=== PATIENT | female | born 1960 | race Hispanic/Latino ===

== ENCOUNTER 2016-11-01 12:27 | Outpatient (CLI) | payer BC ==
--- NOTE | 2016-11-01 15:39 | Magnetic Resonance Report ---
MRI OF THE ABDOMEN WITH AND WITHOUT CONTRAST: HISTORY: Abdominal pain/hepatomegaly. PROCEDURE: A multiplanar, multisequence study was performed with and without contrast. FINDINGS: The liver is moderately enlarged measuring 21 cm in cephalocaudad dimension. There are no focal hepatic abnormalities. There is no evidence of biliary dilatation. After contrast administration, there are no abnormal areas of enhancement within the liver parenchyma. The spleen, pancreas, and adrenal glands are normal. The kidneys are normal in size and configuration. There is a tiny subcentimeter cyst in the lower pole of the left kidney. There is no hydronephrosis. No evidence of retroperitoneal adenopathy is seen. IMPRESSION: Nonspecific hepatomegaly. No focal masses or abnormal enhancement is seen. A tiny left renal cyst is incidentally noted.
== END 2016-11-01 12:28 | disposition home or self-care (01) ==
LOC: MRI 12:27
PROVIDERS: ATTEND Internal Medicine Gastroenterology
DX: N28.1 Cyst of kidney, acquired (principal); R16.0 Hepatomegaly, not elsewhere classified; M25.519 Pain in unspecified shoulder; Z90.49 Acquired absence of other specified parts of digestive tract
CPT/HCPCS: 74183; A9577

== ENCOUNTER 2017-01-08 15:05 | Outpatient (CLI) | payer BC | END 2017-01-08 15:06 | disposition home or self-care (01) | LOC: LAB 15:05 | DX: E03.9 Hypothyroidism, unspecified (principal) | CPT/HCPCS: 36415; 84439; 84443 ==

== ENCOUNTER 2017-05-23 16:27 | Outpatient (CLI) | payer BC | END 2017-05-23 16:28 | disposition home or self-care (01) | LOC: LAB 16:27 | DX: R63.4 Abnormal weight loss (principal) | CPT/HCPCS: 36415 ==

== ENCOUNTER 2017-06-20 07:52 | Outpatient (CLI) | payer BC, OTHER | END 2017-06-20 07:53 | disposition home or self-care (01) | LOC: LABHHL 07:52 | PROVIDERS: ATTEND Specialist | DX: N63 Unspecified lump in breast (principal) | CPT/HCPCS: 88112 ==

== ENCOUNTER 2017-09-26 07:13 | Outpatient (CLI) | payer BC ==
--- NOTE | 2017-09-30 08:21 | PET Report ---
PET SB TO MT INITIAL: HISTORY: Left lung pulmonary nodule. TECHNIQUE: 13.8 millicuries F-18 FDG was administered intravenously. Noncontrast CT images and PET images were obtained from the skull base to the proximal thighs. Fused images were reviewed on a workstation. The patient's blood glucose level measured 113. COMPARISON: No previous PET/CT. Correlation is made with a CT abdomen pelvis with contrast dated 08/06/16. FINDINGS: BRAIN: physiologic FDG uptake in the imaged brain. NECK: physiologic FDG uptake. MEDIASTINUM: physiologic FDG uptake. LUNGS: physiologic FDG uptake. There is a 1 cm calcified granuloma in the subpleural region of the medial left lower lobe with max SUV measuring 1.3. No suspicious pulmonary nodule or mass. No underlying lung disease detected. PLEURA/PERICARDIUM: physiologic FDG uptake. THORACIC LYMPH NODES: physiologic FDG uptake. HEPATOBILIARY: physiologic FDG uptake. Cholecystectomy changes are noted. Mean liver SUV measures 2.6. PANCREAS: physiologic FDG uptake. SPLEEN: physiologic FDG uptake. ADRENAL GLANDS: physiologic FDG uptake. KIDNEYS/RENAL COLLECTING SYSTEMS: physiologic FDG uptake. BOWEL/MESENTERY: physiologic FDG uptake. PELVIC VISCERA: physiologic FDG uptake. ABDOMINAL/PELVIC LYMPH NODES: physiologic FDG uptake. MUSCULOSKELETAL: There is a solitary focus of increased radiotracer uptake with max SUV measuring 5.2 in the left lower quadrant abdominal wall. This appears to involve the abdominal wall muscles near the anterior, inferior iliac spine. There is no focal mass in this area. This presumably represents muscular uptake. Please correlate with the patient. IMPRESSION: Negative PET/CT. 1 cm calcified granuloma in the left lower lobe as described. No suspicious pulmonary nodule. There is a solitary focus of increased radiotracer uptake in the left lower quadrant anterior abdominal wall which appears to be muscular in origin. See above. No suspicious mass in this area on the CT images.
== END 2017-09-26 07:14 | disposition home or self-care (01) ==
LOC: PET 07:13
PROVIDERS: ATTEND Internal Medicine Critical Care Medicine
DX: J84.10 Pulmonary fibrosis, unspecified (principal); R91.1 Solitary pulmonary nodule; Z90.49 Acquired absence of other specified parts of digestive tract; Z79.899 Other long term (current) drug therapy
CPT/HCPCS: 78816; 82962; A9552

== ENCOUNTER 2018-01-15 07:48 | Day surgery (SDC) | payer BC ==
[2018-01-15] MEDS ORDERED: NACL 0.9% 1000 ML 1,000 ML IV SCH ×2 (08:00→09:00)
[2018-01-15] MEDS ORDERED: WATER FOR IRRIG STERILE IR ONE (08:34)
[2018-01-15] MEDS ORDERED: WATER FOR IRRIG STERILE ONE (08:34)
[2018-01-15] MEDS ORDERED: XYLOCAINE 1% 20 mL ONE (09:00)
[2018-01-15] MEDS ORDERED: DIPRIVAN 10 MG/ML IV ONE ×3 (09:01→09:22)
--- NOTE | 2018-01-15 09:40 | Short Stay Summary ---
Short Stay Documentation Date of service: 01/15/18 Narrative H&P: see office H&H dated 12/25/17 - History H&P: obtained from office - Allergies and Medications Current Medications: Allergies Sulfa (Sulfonamide Antibiotics) Allergy (Verified 08/10/16 11:13) Rash ciprofloxacin [From Cipro] Adverse Reaction (Verified 08/10/16 11:13) lips bleed ciprofloxacin HCl [From Cipro] Adverse Reaction (Verified 08/10/16 11:13) lips bleed clindamycin Adverse Reaction (Verified 08/10/16 11:13) makes skin crawl fluconazole [From Diflucan] Adverse Reaction (Verified 08/10/16 11:13) lips bleed Home Medications Medication Instructions Recorded Confirmed Last Taken Type Levothyroxine [Synthroid] 75 mcg PO QAM 10/18/16 01/15/18 01/13/18 History Active Medications Sodium Chloride (Nacl 0.9% 1000 Ml) 1,000 mls @ 50 mls/hr IV DIRECT MARTHA Last Admin: 01/15/18 08:32 Dose: 50 mls/hr - Brief post op/procedure progress note Date of procedure: 01/15/18 Findings: see dictated reports. Estimated blood loss: none Pathology: list (1. biopsies of duodenum to r/o celiac disease 2. Antral biopsies for h.pylori and metaplasia) Specimen disposition: to lab Condition: stable - Disposition Condition at discharge: Good Disposition: DC-01 TO HOME OR SELFCARE - Discharge Diagnoses (1) Epigastric abdominal pain Status: Acute (2) History of colon polyps Status: Acute Short Stay Discharge Plan Activity: other (no driving for 24 hours) Weight Bearing Status: Full Weight Bearing Diet: regular Follow up with: LAURI MACHADO JR., MD [Primary Care Provider] - 7 Days
--- NOTE | 2018-01-15 09:43 | Operative Report ---
Operative Report Operative Report: Date of procedure: 01/15/2018 Procedure: Esophagogastroduodenoscopy with biopsies of the duodenum to assess for possible celiac disease and biopsy of the antrum to assess for possible H. pylori and metaplasia. Preprocedure diagnosis: Chronic epigastric pain. History of H. pylori infection. Post procedure diagnosis: Minimal prepyloric antral gastritis. Endoscopist: Dr. Goodrich Anesthesia: Monitored anesthesia care per anesthesia department Medications: Propofol per anesthesia Estimated blood loss: 0 After careful discussion of the nature and purpose of the procedure as well as details the technique risks benefits and alternatives consent was obtained. The patient was placed in the left lateral decubitus position and medicated per anesthesia. The tip of the Scan EQ 570 video scope was passed per orum under direct vision into the esophagus and advanced into the stomach and descending duodenum. The descending duodenum the duodenal bulb and pylorus were symmetrical and normal. 5 biopsies were taken from the descending duodenum to assess for possible celiac disease. The scope was withdrawn into the stomach and the stomach then gently insufflated with air. The antrum revealed patchy erythema without ulcers or erosions. 3 biopsies were taken to assess for possible H. pylori and metaplasia.. The stomach was further insufflated and the scope was then retroflexed and partially withdrawn. The cardia, fundus, and body of the stomach were within normal limits and easily distensible.The scope was then withdrawn in the forward position. The esophagogastric junction was at 36 cm. The esophageal body was normal throughout. The procedure was was well tolerated and the patient was observed in recovery. Impressions: Minimal prepyloric gastritis otherwise normal upper digestive tract. Plan: Await results of pathology. The patient called the office in 2 weeks for discussion and management. Electronically signed: Frankie Goodrich MD
--- NOTE | 2018-01-15 09:44 | Operative Report ---
Operative Report Operative Report: Date of procedure: 01/15/2018 Preprocedure diagnosis: History of colon polyps Post procedure diagnosis: Few sigmoid diverticula otherwise normal study with no recurrent polyps. Procedure: Colonoscopy to the cecum Endoscopist: Dr. Goodrich Anesthesia: Monitored anesthesia care per anesthesia department Estimated blood loss: 0 Medications: Monitored anesthesia care. See separate report by anesthesia for details. After careful discussion of the nature and purpose of the procedure as well as details of the technique risks benefits and alternatives the patient gave consent. Please see recent history and physical from the office. The patient was placed in the left lateral decubitus position and medicated per anesthesia. A rectal exam was performed sphincter tone was normal there were no masses palpable. The [employer] 570 scope was passed transanally and advanced under continuous direct vision without difficulty to the cecum. The colon was well prepared. The cecum was normal. The ascending colon was normal and on forward and retroflexed views. The transverse colon, descending colon, and sigmoid colon were normal except for a few scattered sigmoid diverticula. The rectum was normal on forward and retroflexed views. The procedure was well-tolerated overall and the patient was observed in recovery. Conclusions: Mild sigmoid diverticulosis. No recurrent polyps. Plan: Repeat colonoscopy in 5 years. Signed electronically: Frankie Goodrich M.D.
--- NOTE | 2018-01-15 09:54 | Anesthesia Consultation ---
Anesthesia Consult and Med Hx Date of service: 01/15/18 - Airway Anesthetic Teeth Evaluation: Good, Caps ROM Head & Neck: Inadequate (stiff, pain in neck) Mental/Hyoid Distance: Inadequate Mallampati Class: Class I Intubation Access Assessment: Probably Good - Pulmonary Exam CTA: Yes - Cardiac Exam Cardiac Exam: RRR - Pre-Operative Health Status ASA Pre-Surgery Classification: ASA2 Proposed Anesthetic Plan: MAC - Pulmonary Hx Smoking: Yes (Quit 3 years ago ) - Endocrine Hx Hypothyroidism: Yes
--- NOTE | 2018-01-15 09:54 | Anesthesia Day of Surgery ---
Anesthesia Day of Surgery - Day of Surgery Patient Examined: Yes Patient H&P Reviewed: Yes Patient is NPO: Yes
[2018-01-15 10:41] VITALS: BP 110/67
== END 2018-01-15 07:49 | disposition home or self-care (01) ==
LOC: GIO 07:48
PROVIDERS: ATTEND Internal Medicine Gastroenterology
DX: K57.30 Diverticulosis of large intestine without perforation or abscess without bleeding (principal); K29.70 Gastritis, unspecified, without bleeding; K31.89 Other diseases of stomach and duodenum; E03.9 Hypothyroidism, unspecified; Z98.890 Other specified postprocedural states; Z88.2 Allergy status to sulfonamides; Z88.1 Allergy status to other antibiotic agents; Z87.891 Personal history of nicotine dependence; Z86.010 Personal history of colon polyps
CPT/HCPCS: 43239; 45378; 88305; 88342; J2704; J7030

== ENCOUNTER 2018-04-29 14:59 | Emergency (ER) | payer BC ==
[2018-04-29] MEDS ORDERED: BOOSTRIX IM ONE (15:38)
--- NOTE | 2018-04-29 15:41 | Emergency Department Report ---
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 Patient states she was pulling trash and a metal trash can fell on right leg cutting mabry. She cleaned wound with alcohol wipes and applied a Tegaderm. She went home and started taking an old prescription of amoxicillin for 3 days prior to me in for evaluation. Patient reports bleeding stopped Saturday when she got home. She is unsure of the last tetanus vaccine. Her primary care provider is in the family practice. Denies swelling, fever, numbness or tingling, chest pain, and deformity ED Review of Systems ROS: Stated complaint: CUT LEG ON TRASH CAN Other details as noted in HPI Constitutional: denies: chills, fever Respiratory: denies: cough, shortness of breath, wheezing Cardiovascular: denies: chest pain, palpitations Gastrointestinal: denies: abdominal pain, nausea, diarrhea Skin: lesions (1 cm abrasion to right mabry). denies: rash Neurological: denies: headache, weakness, numbness, paresthesias Psychiatric: denies: anxiety, depression ED Past Medical Hx - Past Medical History Previous Medical History?: Yes Hx GERD: Yes Hx HIV: No - Surgical History Past Surgical History?: Yes Hx Cholecystectomy: Yes - Social History Smoking Status: Never Smoker Substance Use Type: None - Medications Home Medications: Home Medications Medication Instructions Recorded Confirmed Last Taken Type Levothyroxine [Synthroid] 75 mcg PO QAM 10/18/16 01/15/18 01/13/18 History Doxycycline Hyclate [Doxycycline 100 mg PO Q12HR #14 tab 04/29/18 Unknown Rx Hyclate TAB] Laceration Physical Exam - Exam General: Vital signs noted. No distress. Alert and acting appropriately. Wound Length (cm): 1 Laceration Location: Lower Extremity (right lower extremity) Full Body Front + Back: 1 - 1 cm abrasion, surrounding cellulitis, warm and tender, no active drainage Laceration Exam: Yes Normal Distal CMS, No Foreign Body, No Exposed Tendon, Vessel, or Nerve, No Tendon Injury ED Course Vital Signs 04/29/18 15:06 Temperature 98.3 F Pulse Rate 72 Respiratory 16 Rate Blood Pressure 115/74 O2 Sat by Pulse 100 Oximetry ED Medical Decision Making - Medical Decision Making This is a 57 y.o. female presents with abrasion to right lower extremity with surrounding cellulitis. Patient examined by me. Patient is non-toxic appearing and stable. Vitals are normal. Physical examination is susceptible of cellulites. Start doxycycline 100 mg by mouth twice a day 7 days. Given tetanus vaccination while in the ER. Discharged home stable. Discussed ER care plan with patient. Patient agreed with plan. F/U with PCP. Critical care attestation.: If time is entered above; I have spent that time in minutes in the direct care of this critically ill patient, excluding procedure time. ED Disposition Clinical Impression: Cellulitis of leg without foot Abrasion of leg with infection Qualifiers: Encounter type: initial encounter Laterality: right Qualified Code(s): S80.811A - Abrasion, right lower leg, initial encounter; L08.9 - Local infection of the skin and subcutaneous tissue, unspecified Disposition: - TO HOME OR SELFCARE Is pt being admited?: No Does the pt Need Aspirin: No Condition: Stable Instructions: Cellulitis (ED) Additional Instructions: Take antibiotics as prescribed for the full course. Apply triple antibiotic ointment to wound twice daily. Keep wound dry and clean. Avoid putting to much tension on wound site. Follow up with Primary Care Provider in 2-3 days. Return to ER if red, swollen, foul discharge, or fever. Prescriptions: Doxycycline Hyclate [Doxycycline Hyclate TAB] 100 mg PO Q12HR #14 tab Referrals: [facility] [Provider Group] - 3-5 Days Time of Disposition: 15:46 Print Language: TONGAN
[2018-04-29 15:54] VITALS: BP 115/70
== END 2018-04-29 15:52 | disposition home or self-care (01) ==
LOC: ED 14:59
DX: S80.811A Abrasion, right lower leg, initial encounter (principal); L08.9 Local infection of the skin and subcutaneous tissue, unspecified; L03.115 Cellulitis of right lower limb; K52.9 Noninfective gastroenteritis and colitis, unspecified; Z90.49 Acquired absence of other specified parts of digestive tract; X58.XXXA Exposure to other specified factors, initial encounter; Y93.89 Activity, other specified; Y99.8 Other external cause status; Y92.89 Other specified places as the place of occurrence of the external cause
CPT/HCPCS: 90471; 90715

== ENCOUNTER 2018-08-12 14:05 | Outpatient (CLI) | payer BC ==
[2018-08-12 15:14] LABS: Free T4 (Free Thyroxine) 1.44 ng/dL (0.76-1.46)
== END 2018-08-12 14:06 | disposition home or self-care (01) ==
LOC: LAB 14:05
PROVIDERS: ATTEND Physician Assistant Medical
DX: E03.9 Hypothyroidism, unspecified (principal); K21.9 Gastro-esophageal reflux disease without esophagitis; Z90.89 Acquired absence of other organs; Z90.49 Acquired absence of other specified parts of digestive tract; Z87.891 Personal history of nicotine dependence
CPT/HCPCS: 36415; 84436; 84439; 84443; 84479

== ENCOUNTER 2019-05-28 14:13 | Outpatient (CLI) | payer BC ==
--- NOTE | 2019-05-28 14:52 | XRay Report ---
CHEST 2 VIEWS INDICATION / CLINICAL INFORMATION: (R04.2)HEMOPTYSIS. COMPARISON: None available. FINDINGS: SUPPORT DEVICES: None. Foreign body projecting at the level of the neck over midline on the frontal i mages presumed to be outside the patient, likely a hair tie. HEART / MEDIASTINUM: No significant abnormality. LUNGS / PLEURA: No significant pulmonary or pleural abnormality. No pneumothorax. ADDITIONAL FINDINGS: No significant additional findings. IMPRESSION: 1. No acute findings. Signer Name: Shahid Devi MD Signed: 05/28/2019 2:48 PM Workstation Name: [id number]
== END 2019-05-28 14:14 | disposition home or self-care (01) ==
LOC: XRAY 14:13
PROVIDERS: ATTEND Family Medicine
DX: R04.2 Hemoptysis (principal); K21.9 Gastro-esophageal reflux disease without esophagitis; E03.9 Hypothyroidism, unspecified; Z90.89 Acquired absence of other organs
CPT/HCPCS: 71046

== ENCOUNTER 2019-06-01 18:39 | Emergency (ER) | payer BC ==
--- NOTE | 2019-06-01 19:27 | Emergency Department Report ---
Blank Doc - Documentation Documentation: This is a 58-year-old female that presents with vaginal discharge and nasal di scharge. Was sent by PCP for positive cultures. This initial assessment/diagnostic orders/clinical plan/treatment(s) is/are subject to change based on patient's health status, clinical progression and re- assessment by fellow clinical providers in the ED. Further treatment and workup at subsequent clinical providers discretion. Patient/guardians urged not to elope from the ED as their condition may be serious if not clinically assessed and managed. Initial orders include: 1- Patient sent to MAIN ED for further evaluation and treatment
[2019-06-01 19:35] VITALS: BP 114/73
[2019-06-01] MEDS ORDERED: ROCEPHIN/NS 1 GM/50 ML 1 GM/50 ML BAG IV ONE (20:50)
[2019-06-01 21:12] LABS: Basophils % (Auto) 0.4 % (0.0-1.8); Eosinophils # (Auto) 0.1 K/mm3 (0.0-0.4); Eosinophils % (Auto) 1.4 % (0.0-4.3); Hematocrit 39.6 % (30.3-42.9); Hemoglobin 13.6 gm/dl (10.1-14.3); Lymphocytes # (Auto) 1.4 K/mm3 (1.2-5.4); Lymphocytes % (Auto) 23.7 % (13.4-35.0); Mean Corpuscular HGB Conc 34 % (30-34); Mean Corpuscular Volume 95 fl (79-97); Monocytes # (Auto) 0.6 K/mm3 (0.0-0.8); Monocytes % (Auto) 10.3 % (0.0-7.3); Platelet Count 214 K/mm3 (140-440); Red Blood Count 4.19 M/mm3 (3.65-5.03); Red Cell Distribution Width 12.9 % (13.2-15.2)
[2019-06-01 21:33] LABS: Alanine Aminotransferase 19 units/L (7-56); Albumin 4.6 g/dL (3.9-5); BUN/Creatinine Ratio 32; Blood Urea Nitrogen 16 mg/dL (7-17); Calcium 9.1 mg/dL (8.4-10.2); Hemolysis Index 8
[2019-06-01 21:37] LABS: Bilirubin,Direct < 0.2 mg/dL (0-0.2)
--- NOTE | 2019-06-01 23:56 | Emergency Department Report ---
ED Female HPI - General Chief complaint: Abdominal Pain Stated complaint: INFECTION/PAIN Time Seen by Provider: 06/01/19 19:25 Source: patient Mode of arrival: Ambulatory Limitations: No Limitations - History of Present Illness Initial comments: Patient is a 58-year-old white female presents to the ED for evaluation after being referred to the ED by her primary care physician for IV antibiotics given the fact that the patient has had chronic urinary tract infection which has not been adequately treated outpatient. Patient currently complains of suprapubic pressure, dysuria, urinary frequency and urgency. Patient denies fever, chills, nausea, vomiting, abdominal pain, cough, chest pain, shortness of breath or vaginal discharge and vaginal bleeding. MD Complaint: dysuria, pelvic pain -: Gradual, month(s) (6) Location: suprapubic Radiation: non-radiating Severity: mild Severity scale (0 -10): 0 Quality: dull Consistency: intermittent Improves with: none Worsens with: urination Are you Now?: No Associated Symptoms: denies other symptoms, dysuria. denies: vaginal discharge, vaginal bleeding, abdominal pain, nausea/vomiting, fever/chills, headaches, loss of appetite, rash, seizure, shortness of breath, weakness - Related Data Sexually active: Yes Home Medications Medication Instructions Recorded Confirmed Last Taken Levothyroxine [Synthroid] 75 mcg PO QAM 10/18/16 01/15/18 01/13/18 Previous Rx's Medication Instructions Recorded Last Taken Type Doxycycline Hyclate [Doxycycline 100 mg PO Q12HR #14 tab 04/29/18 Unknown Rx Hyclate TAB] Omeprazole 40 mg PO DAILY #30 capsule. 02/06/19 Unknown Rx levoFLOXacin [Levaquin TAB] 500 mg PO QDAY #10 tablet 06/02/19 Unknown Rx Allergies Allergy/AdvReac Type Severity Reaction Status Date / Time Sulfa (Sulfonamide Allergy Rash Verified 08/10/16 11:13 Antibiotics) ciprofloxacin [From Cipro] AdvReac lips bleed Verified 08/10/16 11:13 ciprofloxacin HCl AdvReac lips bleed Verified 08/10/16 11:13 [From Cipro] clindamycin AdvReac makes skin Verified 08/10/16 11:13 crawl fluconazole [From Diflucan] AdvReac lips bleed Verified 08/10/16 11:13 ED Review of Systems ROS: Stated complaint: INFECTION/PAIN Other details as noted in HPI Constitutional: denies: chills, fever Eyes: denies: eye pain, eye discharge, vision change ENT: denies: ear pain, throat pain Respiratory: denies: cough, shortness of breath, wheezing Cardiovascular: denies: chest pain, palpitations Endocrine: no symptoms reported Gastrointestinal: denies: abdominal pain, nausea, diarrhea Genitourinary: dysuria, frequency, other (pelvic pressure). denies: urgency, discharge, dyspareunia Musculoskeletal: denies: back pain, joint swelling, arthralgia Skin: denies: rash, lesions Neurological: denies: headache, weakness, paresthesias Psychiatric: denies: anxiety, depression Hematological/Lymphatic: denies: easy bleeding, easy bruising ED Past Medical Hx - Past Medical History Previous Medical History?: Yes Hx GERD: Yes Hx HIV: No Additional medical history: hypothyroidism - Surgical History Past Surgical History?: Yes Hx Cholecystectomy: Yes Additional Surgical History: nose surgery,infertility surgery - Social History Smoking Status: Current Every Day Smoker - Medications Home Medications: Home Medications Medication Instructions Recorded Confirmed Last Taken Type Levothyroxine [Synthroid] 75 mcg PO QAM 10/18/16 01/15/18 01/13/18 History Doxycycline Hyclate [Doxycycline 100 mg PO Q12HR #14 tab 04/29/18 Unknown Rx Hyclate TAB] Omeprazole 40 mg PO DAILY #30 capsule. 02/06/19 Unknown Rx levoFLOXacin [Levaquin TAB] 500 mg PO QDAY #10 tablet 06/02/19 Unknown Rx ED Physical Exam - General Limitations: No Limitations General appearance: alert, in no apparent distress - Head Head exam: Present: atraumatic, normocephalic, normal inspection - Eye Eye exam: Present: normal appearance, PERRL, EOMI - ENT ENT exam: Present: normal exam, normal orophraynx, mucous membranes moist, TM's normal bilaterally, normal external ear exam - Neck Neck exam: Present: normal inspection, full ROM. Absent: tenderness, meningismus, lymphadenopathy, thyromegaly - Respiratory Respiratory exam: Present: normal lung sounds bilaterally. Absent: respiratory distress, wheezes, rales, rhonchi, chest wall tenderness, accessory muscle use, prolonged expiratory - Cardiovascular Cardiovascular Exam: Present: regular rate, normal rhythm, normal heart sounds. Absent: systolic murmur, diastolic murmur, rubs, gallop - GI/Abdominal GI/Abdominal exam: Present: soft, normal bowel sounds. Absent: tenderness, guarding, rebound, hyperactive bowel sounds, hypoactive bowel sounds, organomegaly, mass - Rectal Rectal exam: Present: deferred - Extremities Exam Extremities exam: Present: normal inspection, full ROM, normal capillary refill - Back Exam Back exam: Present: normal inspection, full ROM. Absent: tenderness, CVA tenderness (R), CVA tenderness (L), muscle spasm, paraspinal tenderness, vertebral tenderness - Neurological Exam Neurological exam: Present: alert, oriented X3, CN II-XII intact, normal gait, reflexes normal - Psychiatric Psychiatric exam: Present: normal affect, normal mood, anxious - Skin Skin exam: Present: warm, dry, intact, normal color. Absent: rash ED Course Vital Signs 06/01/19 19:34 Temperature 98.0 F Pulse Rate 76 Respiratory 18 Rate Blood Pressure 114/73 O2 Sat by Pulse 99 Oximetry - Reevaluation(s) Reevaluation #1: 06/02/19 01:49 This is a 58-year-old female who presented to the ED with suprapubic pressure, dysuria, urinary frequency and urgency, and was referred to the ED by her PCP for possible IV antibiotics treatment given that unit tract infection is chronic. Patient is alert and oriented 3 and is not in distress with normal vital signs in the ED. Lab test results were reviewed and are all unremarkable. Patient was treated initially with Rocephin 1 g IV 1, and normal saline 1 L IV bolus. Patient was discharged home on Levaquin by mouth tablet daily for 10 days and advised to follow-up with primary care physician in 7-10 days for reevaluation or return to the ED immediately if symptoms get worse. Patient had previously stated that she had previously taken Levaquin before without any allergic reaction but there is allergies include ciprofloxacin. 06/02/19 01:51 ED Medical Decision Making - Lab Data Result diagrams: 06/01/19 20:59 06/01/19 20:59 - Medical Decision Making This is a 58-year-old female who presented to the ED with suprapubic pressure, dysuria, urinary frequency and urgency, and was referred to the ED by her PCP for possible IV antibiotics treatment given that unit tract infection is chronic. Patient is alert and oriented 3 and is not in distress with normal v ital signs in the ED. Lab test results were reviewed and are all unremarkable. Patient was treated initially with Rocephin 1 g IV 1, and normal saline 1 L IV bolus. Patient was discharged home on Levaquin by mouth tablet daily for 10 days and advised to follow-up with primary care physician in 7-10 days for reevaluation or return to the ED immediately if symptoms get worse. Although the patient is allergic to ciprofloxacin, patient stated that she had taken Levaquin previously with no reaction. Patient was therefore given a prescription for Levaquin to take at home. - Differential Diagnosis Chronic UTI; Pelvic pain; dysuria Critical care attestation.: If time is entered above; I have spent that time in minutes in the direct care o f this critically ill patient, excluding procedure time. ED Disposition Clinical Impression: Chronic UTI (urinary tract infection) Disposition: DC-01 TO HOME OR SELFCARE Is pt being admited?: No Does the pt Need Aspirin: No Condition: Stable Instructions: Urinary Tract Infection in Women (ED), Abdominal Pain (ED) Additional Instructions: Take medication with food, drink plenty of fluids and follow up with your primary care physician in 7-10 days for reevaluation. Return to the ED immediately if symptoms get worse. Prescriptions: levoFLOXacin [Levaquin TAB] 500 mg PO QDAY #10 tablet Referrals: ANGELA SERRANO MD [Primary Care Provider] - 3-5 Days Time of Disposition: 23:55 Print Language: CITIZEN OF [place]
[2019-06-02 01:26] LABS: Bacteria,Urine 1+ /HPF (Negative); Bilirubin,Urine NEG (Negative); Blood,Urine NEG (Negative); Color,Urine Yellow (Yellow); Mucus,Urine FEW /HPF; Protein,Urine <15 mg/dL mg/dL (Negative); Urobilinogen,Urine < 2.0 mg/dL (<2.0)
== END 2019-06-02 01:48 | disposition home or self-care (01) ==
LOC: ED 18:39
DX: N39.0 Urinary tract infection, site not specified (principal); K21.9 Gastro-esophageal reflux disease without esophagitis; E03.9 Hypothyroidism, unspecified; F17.200 Nicotine dependence, unspecified, uncomplicated; Z90.49 Acquired absence of other specified parts of digestive tract; Z79.899 Other long term (current) drug therapy; Z88.1 Allergy status to other antibiotic agents; Z88.2 Allergy status to sulfonamides; Z88.8 Allergy status to other drugs, medicaments and biological substances
CPT/HCPCS: 36415; 80048; 80076; 81001; 85025; 87040; 87076; 87086; 87186; 96365; 99283; J0696

== ENCOUNTER 2019-07-31 15:20 | Outpatient (CLI) | payer BC ==
[2019-07-31 15:42] LABS: Basophils % (Auto) 0.7 % (0.0-1.8); Eosinophils # (Auto) 0.1 K/mm3 (0.0-0.4); Eosinophils % (Auto) 2.1 % (0.0-4.3); Hemoglobin 13.7 gm/dl (10.1-14.3); Lymphocytes # (Auto) 1.2 K/mm3 (1.2-5.4); Lymphocytes % (Auto) 27.8 % (13.4-35.0); Mean Corpuscular HGB Conc 34 % (30-34); Mean Corpuscular Volume 94 fl (79-97); Monocytes # (Auto) 0.4 K/mm3 (0.0-0.8); Monocytes % (Auto) 9.9 % (0.0-7.3); Platelet Count 235 K/mm3 (140-440); Red Blood Count 4.25 M/mm3 (3.65-5.03); Red Cell Distribution Width 12.8 % (13.2-15.2)
[2019-07-31 17:28] LABS: Alanine Aminotransferase 18 units/L (7-56); Albumin 4.7 g/dL (3.9-5); BUN/Creatinine Ratio 25; Blood Urea Nitrogen 15 mg/dL (7-17); Hemolysis Index 3
== END 2019-07-31 15:21 | disposition home or self-care (01) ==
LOC: LAB 15:20
PROVIDERS: ATTEND Internal Medicine Gastroenterology
DX: R63.4 Abnormal weight loss (principal); R10.13 Epigastric pain
CPT/HCPCS: 36415; 80053; 85025; 86705; 86706; 86803

== ENCOUNTER 2019-08-05 11:35 | Outpatient (CLI) | payer BC ==
--- NOTE | 2019-08-06 00:22 | Ultrasound Report ---
LIMITED RUQ ABDOMINAL ULTRASOUND INDICATION: R63.4 ABNORMAL WEIGHT LOSS/R10.13EPIGASTRIC PAIN. COMPARISON: CT scan abdomen/pelvis 02/06/2019. FINDINGS: Pancreas: Visualized portions show no significant abnormality. Abdominal Aorta: No significant abnormality. IVC: No significant abnormality. Liver: The liver does not appear grossly enlarged. Echogenicity is normal and there are no focal mass es.. Gallbladder: Surgically absent. Sonographic Orlando's sign: Not performed. Bile ducts: Normal. Common bile duct measures 7 mm. Free fluid: None. Additional Findings: Prominence of the hepatic veins may be related to hydration status.. IMPRESSION: 1. Normal exam. Signer Name: Al Boucher MD Signed: 08/06/2019 12:18 AM Workstation Name: [id number]
== END 2019-08-05 11:36 | disposition home or self-care (01) ==
LOC: US 11:35
PROVIDERS: ATTEND Internal Medicine Gastroenterology
DX: R63.4 Abnormal weight loss (principal); R10.13 Epigastric pain; Z90.49 Acquired absence of other specified parts of digestive tract
CPT/HCPCS: 76705

== ENCOUNTER 2019-08-14 15:35 | Outpatient (CLI) | payer BC | END 2019-08-14 15:36 | disposition home or self-care (01) | LOC: LAB 15:35 | PROVIDERS: ATTEND Internal Medicine Gastroenterology | DX: R76.8 Other specified abnormal immunological findings in serum (principal); F17.200 Nicotine dependence, unspecified, uncomplicated; K21.9 Gastro-esophageal reflux disease without esophagitis; E03.9 Hypothyroidism, unspecified; Z90.49 Acquired absence of other specified parts of digestive tract | CPT/HCPCS: 36415; 86803 ==

== ENCOUNTER 2019-08-18 09:50 | Day surgery (SDC) | payer BC ==
[~2019-08-18 09:50] MED LIST: SODIUM CHLORIDE 0.9% 1000 ML 1,000 ML IV SCH
[2019-08-18] MEDS ORDERED: LIDOCAINE (2%) 20 MG/1 ML VIAL 20 ML MDV INFILTRATI ONE (11:28)
[2019-08-18] MEDS ORDERED: PROPOFOL 200 MG/20 ML VIAL IV ONE (11:28)
[2019-08-18] MEDS ORDERED: fentaNYL 100 MCG/2 ML INJ ONE (11:28)
--- NOTE | 2019-08-18 12:02 | Short Stay Summary ---
Short Stay Documentation Date of service: 08/18/19 - History H&P: obtained from office - Allergies and Medications Current Medications: Allergies Sulfa (Sulfonamide Antibiotics) Allergy (Verified 08/10/16 11:13) Rash ciprofloxacin [From Cipro] Adverse Reaction (Verified 08/10/16 11:13) lips bleed ciprofloxacin HCl [From Cipro] Adverse Reaction (Verified 08/10/16 11:13) lips bleed clindamycin Adverse Reaction (Verified 08/10/16 11:13) makes skin crawl fluconazole [From Diflucan] Adverse Reaction (Verified 08/10/16 11:13) lips bleed Home Medications Medication Instructions Recorded Confirmed Last Taken Type Levothyroxine [Synthroid] 75 mcg PO QAM 10/18/16 01/15/18 08/17/19 History Doxycycline Hyclate [Doxycycline 100 mg PO Q12HR #14 tab 04/29/18 Unknown Rx Hyclate TAB] Omeprazole 40 mg PO DAILY #30 capsule. 02/06/19 Unknown Rx levoFLOXacin [Levaquin TAB] 500 mg PO QDAY #10 tablet 06/02/19 Unknown Rx Penicillin V Potassium 500 mg PO BID #14 tablet 06/12/19 Unknown Rx Active Medications Sodium Chloride (Nacl 0.9% 1000 Ml) 1,000 mls @ 50 mls/hr IV DIRECT MARTHA Last Admin: 08/18/19 11:43 Dose: 50 mls/hr Documented by: - Brief post op/procedure progress note Date of procedure: 08/18/19 Findings: see dictation Estimated blood loss: none Pathology: list (1. duodenal biopsies for celiac exclusion 2. antral biopsies for h.pylori exclusion) Specimen disposition: to lab Condition: stable - Disposition Condition at discharge: Good Disposition: DC-01 TO HOME OR SELFCARE Short Stay Discharge Plan Activity: other (no driving for 24 hours) Weight Bearing Status: Full Weight Bearing Diet: regular Follow up with: JAVIER HOOPER MD [Primary Care Provider] - 7 Days
--- NOTE | 2019-08-18 12:05 | Operative Report ---
Operative Report Operative Report: Date of procedure: 08/18/2019 Procedure: Esophagogastroduodenoscopy with biopsies of the duodenum and biopsies of the stomach Preprocedure diagnosis: Epigastric and right upper quadrant pain. Weight loss.. Post procedure diagnosis: Mild nonerosive gastritis, fixed open pylorus. Normal study otherwise. Endoscopist: Dr. Goodrich Anesthesia: Monitored anesthesia care per anesthesia department Medications: Propofol per anesthesia. Estimated blood loss: 0 After careful discussion of the nature and purpose of the procedure as well as details the technique risks benefits and alternatives consent was obtained. The patient was placed in the left lateral decubitus position and medicated per anesthesia. The tip of the Olympus video scope was passed per orum under direct vision into the esophagus and advanced into the stomach and descending duodenum. The descending duodenum the duodenal bulb and pylorus were symmetrical and normal. Biopsies of the second and third portion of the duodenum were obtained to assess for possible celiac disease. The scope was withdrawn into the stomach and the stomach then gently insufflated with air. The antrum revealed patchy erythema but no erosions or ulcers. Biopsies were taken for H. pylori testing. The stomach was further insufflated and the scope was then retroflexed and partially withdrawn. The cardia, fundus, and body of the stomach were within normal limits and easily distensible.The scope was then withdrawn in the forward position. The esophagogastric junction was at 36 cm. The esophageal body was normal throughout. The procedure was was well tolerated and the patient was observed in recovery. Impressions: Mild gastritis, nonerosive. Normal appearing upper digestive tract otherwise. Plan: Await pathology results for possible celiac disease and H. pylori infection. The patient will call the office in 1 week. Electronically signed: Frankie Goodrich MD
--- NOTE | 2019-08-18 12:16 | Anesthesia Day of Surgery ---
Anesthesia Day of Surgery - Day of Surgery Patient Examined: Yes Patient H&P Reviewed: Yes Patient is NPO: Yes
--- NOTE | 2019-08-18 12:18 | Anesthesia Consultation ---
Anesthesia Consult and Med Hx Date of service: 08/18/19 - Airway ROM Head & Neck: Adequate Mental/Hyoid Distance: Adequate Mallampati Class: Class I Intubation Access Assessment: Good - Pulmonary Exam CTA: Yes - Cardiac Exam Cardiac Exam: RRR - Pre-Operative Health Status ASA Pre-Surgery Classification: ASA3 Proposed Anesthetic Plan: General, MAC (Abd. Pain, gastritis, Wt loss. Hep C (+) antibodies) - Pulmonary Hx Smoking: Yes (Quit 3 years ago ) Hx Sleep Apnea: No - Central Nervous System Hx Psychiatric Problems: No - Gastrointestinal Hx Gastroesophageal Reflux Disease: (Tests revealed mild reflux. Pt is asymptomatic.) - Endocrine Hx Hypothyroidism: Yes - Other Systems Hx Cancer: No
--- NOTE | 2019-08-18 12:22 | Post Anesthesia Evaluation ---
- Post Anesthesia Evaluation Patient Participated: Yes Airway Patent: Yes Stable Respiratory Function: Yes Nausea/Vomiting: No Temp > 96.8F: Yes Pain Manageable: Yes Adequeate Hydration: Yes Anesthesia Complications: No Block Receding Appropriately: Not Applicable Patient on Ventilator: No
[2019-08-18 12:38] VITALS: BP 98/61
== END 2019-08-18 09:51 | disposition home or self-care (01) ==
LOC: GIO 09:50
PROVIDERS: ATTEND Internal Medicine Gastroenterology
DX: R63.4 Abnormal weight loss (principal); R10.13 Epigastric pain; R10.11 Right upper quadrant pain; K29.50 Unspecified chronic gastritis without bleeding; K31.89 Other diseases of stomach and duodenum; F17.210 Nicotine dependence, cigarettes, uncomplicated; K21.9 Gastro-esophageal reflux disease without esophagitis; E03.9 Hypothyroidism, unspecified; Z79.899 Other long term (current) drug therapy; Z88.8 Allergy status to other drugs, medicaments and biological substances; Z86.010 Personal history of colon polyps; Z98.41 Cataract extraction status, right eye; Z98.42 Cataract extraction status, left eye; Z90.49 Acquired absence of other specified parts of digestive tract; Z98.890 Other specified postprocedural states; Z80.1 Family history of malignant neoplasm of trachea, bronchus and lung
CPT/HCPCS: 43239; 88305; 88342; J2704; J3010; J7030

== ENCOUNTER 2019-09-01 17:46 | Emergency (ER) | payer BC | END 2019-09-01 17:55 | disposition left against medical advice (07) | LOC: ED 17:46 | DX: M25.552 Pain in left hip (principal); Z53.21 Procedure and treatment not carried out due to patient leaving prior to being seen by health care provider ==

== ENCOUNTER 2019-11-27 14:22 | Outpatient (CLI) | payer BC ==
[2019-11-27 14:44] LABS: Basophils % (Auto) 0.6 % (0.0-1.8); Eosinophils # (Auto) 0.1 K/mm3 (0.0-0.4); Eosinophils % (Auto) 2.1 % (0.0-4.3); Hematocrit 39.7 % (30.3-42.9); Hemoglobin 13.6 gm/dl (10.1-14.3); Lymphocytes # (Auto) 1.2 K/mm3 (1.2-5.4); Lymphocytes % (Auto) 22.6 % (13.4-35.0); Mean Corpuscular HGB Conc 34 % (30-34); Mean Corpuscular Volume 95 fl (79-97); Monocytes # (Auto) 0.5 K/mm3 (0.0-0.8); Monocytes % (Auto) 9.3 % (0.0-7.3); Platelet Count 238 K/mm3 (140-440); Red Cell Distribution Width 12.7 % (13.2-15.2)
== END 2019-11-27 14:23 | disposition home or self-care (01) ==
LOC: LAB 14:22
PROVIDERS: ATTEND Specialist
DX: E27.1 Primary adrenocortical insufficiency (principal); E03.9 Hypothyroidism, unspecified
CPT/HCPCS: 36415; 82024; 82533; 83001; 84146; 84439; 84443; 85025

== ENCOUNTER 2019-12-15 08:39 | Outpatient (CLI) | payer BC ==
--- NOTE | 2019-12-15 10:04 | Ultrasound Report ---
TRANSABDOMINAL PELVIC AND TRANSVAGINAL ULTRASOUND HISTORY: CHRONIC PELVIC PAIN COMPARISON: None. TECHNIQUE: Routine transabdominal and transvaginal pelvic ultrasound performed. FINDINGS: TRANSABDOMINAL PELVIC ULTRASOUND: Uterus: Normal size and echogenicity without uterine mass. Uterus measures 8.1 x 3.3 x 3.9 cm. Endometrium: Normal in thickness. Right Ovary: Not identified. Left Ovary: Not identified. Additional findings: Transvaginal exam was performed for better delineation of the endometrium and ov syed. TRANSVAGINAL PELVIC ULTRASOUND: Uterus: Normal size and echogenicity. No masses. Endometrium: Normal thickness measuring 3.4 mm. Right Ovary: Normal size, blood flow and appearance measuring 1.9 x 1.2 x 1.2 cm. Left Ovary: Normal size, blood flow and appearance measuring 1.9 x 1.1 x 0.8 cm. Additional findings: No mass or free fluid. IMPRESSION: 1. Normal pelvis with normal uterus and ovaries. Signer Name: Shree Hayden MD Signed: 12/15/2019 9:59 AM Workstation Name: [id number]
== END 2019-12-15 08:40 | disposition home or self-care (01) ==
LOC: SPVWC 08:39
PROVIDERS: ATTEND Obstetrics & Gynecology
DX: R10.2 Pelvic and perineal pain (principal); G89.29 Other chronic pain
CPT/HCPCS: 76830; 76856

== ENCOUNTER 2020-12-04 00:07 | Emergency (ER) | payer BC ==
[2020-12-04 00:28] VITALS: BP 122/84
[2020-12-04 01:03] LABS: Bilirubin,Urine NEG (Negative); Blood,Urine NEG (Negative); Color,Urine Straw (Yellow); Protein,Urine <15 mg/dL mg/dL (Negative); RBC,Urine < 1.0 /HPF (0.0-6.0); Urobilinogen,Urine < 2.0 mg/dL (<2.0); WBC,Urine < 1.0 /HPF (0.0-6.0)
--- NOTE | 2020-12-04 01:47 | Emergency Department Report ---
ED Female HPI - General Chief complaint: Urogenital-Female Stated complaint: BLADDER INFECTION Time Seen by Provider: 12/04/20 00:38 Source: patient Mode of arrival: Ambulatory Limitations: No Limitations - History of Present Illness Initial comments: 60-year-old female patient with history of recurrent urinary tract infections currently no acute urologist presents emerged department complaining of a reemergence of the symptoms at the 5 months of resolution. She is requesting IV Rocephin in conjunction with Levaquin. Ports no fever, chills, sweats. No hemoptysis no hematemesis hematochezia no hematuria. No no flank pain. She reports no nausea, no vomiting. MD Complaint: dysuria Radiation: suprapubic Severity: moderate Quality: burning Consistency: constant Improves with: none Worsens with: none Are you Now?: No Associated Symptoms: dysuria - Related Data Home Medications Medication Instructions Recorded Confirmed Last Taken Levothyroxine [Synthroid] 75 mcg PO QAM 10/18/16 01/15/18 08/17/19 Previous Rx's Medication Instructions Recorded Last Taken Type Omeprazole 40 mg PO DAILY #30 capsule. 02/06/19 Unknown Rx Nitrofurantoin [place]/M-Cryst 100 mg PO Q12HR #20 capsule 12/04/20 Unknown Rx [Macrobid CAP] Phenazopyridine [Pyridium] 200 mg PO TID #9 tab 12/04/20 Unknown Rx Allergies Allergy/AdvReac Type Severity Reaction Status Date / Time Sulfa (Sulfonamide Allergy Rash Verified 08/10/16 11:13 Antibiotics) ciprofloxacin [From Cipro] AdvReac lips bleed Verified 08/10/16 11:13 ciprofloxacin HCl AdvReac lips bleed Verified 08/10/16 11:13 [From Cipro] clindamycin AdvReac makes skin Verified 08/10/16 11:13 crawl fluconazole [From Diflucan] AdvReac lips bleed Verified 08/10/16 11:13 ED Review of Systems ROS: Stated complaint: BLADDER INFECTION Other details as noted in HPI Comment: All other systems reviewed and negative ED Past Medical Hx - Past Medical History Previous Medical History?: Yes Hx GERD: Yes Hx HIV: No Additional medical history: hypothyroidism. Chronic UTI - Surgical History Hx Cholecystectomy: Yes Additional Surgical History: nose surgery,infertility surgery - Social History Smoking Status: Never Smoker Substance Use Type: None - Medications Home Medications: Home Medications Medication Instructions Recorded Confirmed Last Taken Type Levothyroxine [Synthroid] 75 mcg PO QAM 10/18/16 01/15/18 08/17/19 History Omeprazole 40 mg PO DAILY #30 capsule. 02/06/19 Unknown Rx Nitrofurantoin [place]/M-Cryst 100 mg PO Q12HR #20 capsule 12/04/20 Unknown Rx [Macrobid CAP] Phenazopyridine [Pyridium] 200 mg PO TID #9 tab 12/04/20 Unknown Rx ED Physical Exam - General Limitations: No Limitations General appearance: alert, in no apparent distress - Head Head exam: Present: atraumatic, normocephalic - Eye Eye exam: Present: normal appearance - ENT ENT exam: Present: mucous membranes moist - Neck Neck exam: Present: normal inspection - Respiratory Respiratory exam: Present: normal lung sounds bilaterally. Absent: respiratory distress - Cardiovascular Cardiovascular Exam: Present: regular rate, normal rhythm. Absent: systolic murmur, diastolic murmur, rubs, gallop - GI/Abdominal GI/Abdominal exam: Present: soft, normal bowel sounds - Extremities Exam Extremities exam: Present: normal inspection - Back Exam Back exam: Present: normal inspection - Neurological Exam Neurological exam: Present: alert, oriented X3 - Psychiatric Psychiatric exam: Present: normal affect, normal mood - Skin Skin exam: Present: warm, dry, intact, normal color. Absent: rash ED Course Vital Signs 12/04/20 00:27 Temperature 98.1 F Pulse Rate 90 Respiratory 18 Rate Blood Pressure 122/84 O2 Sat by Pulse 96 Oximetry ED Medical Decision Making - Lab Data Lab Results 12/04/20 Range/Units Unknown Urine Color Straw (Yellow) Urine Turbidity Clear (Clear) Urine pH 7.0 (5.0-7.0) Ur Specific [place] 1.005 (1.003-1.030) Urine Protein <15 mg/dl (Negative) mg/dL Urine Glucose (UA) Neg (Negative) mg/dL Urine Ketones Neg (Negative) mg/dL Urine Blood Neg (Negative) Urine Nitrite Neg (Negative) Urine Bilirubin Neg (Negative) Urine Urobilinogen < 2.0 (<2.0) mg/dL Ur Leukocyte Esterase Neg (Negative) Urine WBC (Auto) < 1.0 (0.0-6.0) /HPF Urine RBC (Auto) < 1.0 (0.0-6.0) /HPF U Epithel Cells (Auto) < 1.0 (0-13.0) /HPF - Medical Decision Making This patient presents to the emergency department with symptoms consistent with acute uncomplicated cystitis. No systemic symptoms. Not septic. She is well- appearing. Low suspicion for acute pyelonephritis given the lack of fever, CVA tenderness, or systemic features. Low suspicion for for kidney stone or infected stone. Not in age range for and her history and and presentation are complicated. No no indications for labs or imaging at this time. Advised on importance of following up with urology for definitive treatment and management also evaluation for her recurrent urinary tract infection she reports that she has had to be evaluated but she has been treated. No one knows what she keeps kidneys regarding her recommendations but she is requesting the same antibiotic that worked previously. On this visit she has been nontoxic no acute stress Critical care attestation.: If time is entered above; I have spent that time in minutes in the direct care of this critically ill patient, excluding procedure time. ED Disposition Clinical Impression: Dysuria Disposition: DC-01 TO HOME OR SELFCARE Is pt being admited?: No Does the pt Need Aspirin: No Condition: Stable Instructions: Dysuria Prescriptions: Nitrofurantoin [place]/M-Cryst [Macrobid CAP] 100 mg PO Q12HR #20 capsule Phenazopyridine [Pyridium] 200 mg PO TID #9 tab Referrals: [facility] [Provider Group] - 3-5 Days PRIMARY CAREMD [Primary Care Provider] - 3-5 Days
== END 2020-12-04 02:04 | disposition home or self-care (01) ==
LOC: ED 00:07
DX: R30.0 Dysuria (principal); K21.9 Gastro-esophageal reflux disease without esophagitis; E03.9 Hypothyroidism, unspecified; Z88.2 Allergy status to sulfonamides; Z88.8 Allergy status to other drugs, medicaments and biological substances; Z79.899 Other long term (current) drug therapy; Z90.49 Acquired absence of other specified parts of digestive tract; Z98.890 Other specified postprocedural states
CPT/HCPCS: 81001; 99283

== ENCOUNTER 2021-02-16 09:53 | Emergency (ER) | payer BC ==
[2021-02-16 10:07] VITALS: BP 126/77
--- NOTE | 2021-02-16 10:33 | Emergency Department Report ---
Blank Doc - Documentation Documentation: 60-year-old female that presents with left-sided chest pain with radiation to right shoulder and back with shortness of breath. Worse with deep breaths. 1- This initial assessment/diagnostic orders/clinical plan/ treatment(s) is/are subject to change based on pt's health status, clinical progression and re- assessment by fellow clinical providers in the ED. Further treatment and workup at subsequent clinical provers discretion. Patient/guardians urged not to elope from ED as their condition may be serious if not clinically assessed and managed. 2-cardiac work-up
[2021-02-16 10:45] LABS: Basophils % (Auto) 0.5 % (0.0-1.8); Eosinophils # (Auto) 0.2 K/mm3 (0.0-0.4); Eosinophils % (Auto) 2.4 % (0.0-4.3); Hematocrit 40.2 % (30.3-42.9); Hemoglobin 13.7 gm/dl (10.1-14.3); Lymphocytes # (Auto) 1.5 K/mm3 (1.2-5.4); Lymphocytes % (Auto) 23.8 % (13.4-35.0); Mean Corpuscular HGB Conc 34 % (30-34); Mean Corpuscular Volume 95 fl (79-97); Monocytes # (Auto) 0.6 K/mm3 (0.0-0.8); Monocytes % (Auto) 10.2 % (0.0-7.3); Platelet Count 213 K/mm3 (140-440); Red Blood Count 4.24 M/mm3 (3.65-5.03); Red Cell Distribution Width 12.7 % (13.2-15.2)
--- NOTE | 2021-02-16 10:48 | XRay Report ---
CHEST 2 VIEWS INDICATION / CLINICAL INFORMATION: Chest Pain. COMPARISON: None available. FINDINGS: SUPPORT DEVICES: None. HEART / MEDIASTINUM: No significant abnormality. LUNGS / PLEURA: No significant pulmonary or pleural abnormality. No pneumothorax. ADDITIONAL FINDINGS: 8 mm nodule suggested overlying the thoracic spine on lateral view. IMPRESSION: 1. Questionable nodule measuring 8 mm seen projecting overlying the thoracic spinal lateral views. A follow-up chest x-ray or CT recommended. Signer Name: Harsh Nicole MD Signed: 02/16/2021 10:43 AM Workstation Name: [email or web address]
[2021-02-16 10:50] LABS: INR 1.03 (0.87-1.13)
[2021-02-16 10:51] LABS: Partial Thromboplastin Time 30.1 Sec. (24.2-36.6)
[2021-02-16 11:18] LABS: Alanine Aminotransferase 18 units/L (7-56); Albumin 4.3 g/dL (3.9-5); Blood Urea Nitrogen 16 mg/dL (7-17); Hemolysis Index 15
[2021-02-16 11:19] LABS: BUN/Creatinine Ratio 27
--- NOTE | 2021-02-16 13:17 | Emergency Department Report ---
HPI - General Chief Complaint: Chest Pain Time Seen by Provider: 02/16/21 10:10 - HPI HPI: Room 25 The patient is a 60-year-old female presenting with a chief complaint of pleurisy. The patient states she has had soreness along her ribs and axilla for approximately 2 months. The patient states she went to see her primary physician 3 weeks ago and had an x-ray performed but was never given a diagnosis. The patient states yesterday she developed some shortness of breath and pleurisy. Patient denies history of cough or fever. Patient denies any recent flights or long car trips. ED Past Medical Hx - Past Medical History Previous Medical History?: Yes Hx GERD: Yes Additional medical history: hypothyroidism. Chronic UTI - Surgical History Past Surgical History?: Yes Hx Cholecystectomy: Yes Additional Surgical History: nose surgery,infertility surgery - Family History Family history: no significant - Social History Smoking Status: Current Every Day Smoker (1 pack/day) Substance Use Type: None - Medications Home Medications: Home Medications Medication Instructions Recorded Confirmed Last Taken Type Levothyroxine [Synthroid] 75 mcg PO QAM 10/18/16 01/15/18 08/17/19 History Omeprazole 40 mg PO DAILY #30 capsule. 02/06/19 Unknown Rx Nitrofurantoin [place]/M-Cryst 100 mg PO Q12HR #20 capsule 12/04/20 Unknown Rx [Macrobid CAP] Phenazopyridine [Pyridium] 200 mg PO TID #9 tab 12/04/20 Unknown Rx Ibuprofen [Motrin 800 MG tab] 800 mg PO Q8HR PRN #20 tablet 02/16/21 Unknown Rx traMADoL [Ultram] 50 mg PO Q6HR PRN #10 tablet 02/16/21 Unknown Rx ED Review of Systems ROS: Stated complaint: PAIN/ WHEN BREATH IS TAKEN Other details as noted in HPI Constitutional: denies: fever Eyes: denies: eye pain ENT: denies: throat pain Respiratory: shortness of breath. denies: cough Cardiovascular: as per HPI Endocrine: no symptoms reported Gastrointestinal: denies: abdominal pain Genitourinary: denies: dysuria Musculoskeletal: denies: back pain Neurological: denies: headache Physical Exam - Physical Exam Vital Signs: Vital Signs 02/16/21 10:03 Temperature 98.1 F Pulse Rate 68 Respiratory 18 Rate Blood Pressure 126/77 [Right] O2 Sat by Pulse 98 Oximetry Physical Exam: GENERAL: The patient is well-developed well-nourished female lying on stretcher not appearing to be in acute distress. [] HEENT: Normocephalic. Atraumatic. Extraocular motions are intact. Patient has moist mucous membranes. NECK: Supple. Trachea midline CHEST/LUNGS: Clear to auscultation. There is no respiratory distress noted. HEART/CARDIOVASCULAR: Regular. There is no tachycardia. There is no gallop rub or murmur. ABDOMEN: Abdomen is soft, nontender. Patient has normal bowel sounds. There is no abdominal distention. SKIN: There is no rash. There is no edema. There is no diaphoresis. NEURO: The patient is awake, alert, and oriented. The patient is cooperative. The patient has no focal neurologic deficits. The patient has normal speech MUSCULOSKELETAL:There is no evidence of acute injury. ED Course Vital Signs 02/16/21 10:03 Temperature 98.1 F Pulse Rate 68 Respiratory 18 Rate Blood Pressure 126/77 [Right] O2 Sat by Pulse 98 Oximetry ED Medical Decision Making - Lab Data Result diagrams: 02/16/21 10:25 02/16/21 10:25 - EKG Data -: EKG Interpreted by Me EKG shows normal: sinus rhythm Rate: bradycardia (57 bpm) - EKG Data When compared to previous EKG there are: previous EKG unavailable Interpretation: other (No ischemic changes seen) - Radiology Data Radiology results: report reviewed (Chest x-ray, CT chest), image reviewed (Chest x-ray, CT chest) interpreted by me: Chest x-ray-no focal infiltrates, no pneumothorax [facility] [address] [place] [address] XRay Report Signed Patient: RAMON RUTHERFORD MR#: [id number] : 1 10/27/1959 Acct:[id number] Age/Sex: 60 / F ADM Date: 02/16/21 Loc: ED Attending Dr: Ordering Physician: TERRIE CALDERÓN NP Date of Service: 02/16/21 Procedure(s): XR chest routine 2V Accession Number(s): [id number] cc: TERRIE CALDERÓN NP Fluoro Time In Minutes: CHEST 2 VIEWS INDICATION / CLINICAL INFORM ATION: Chest Pain. COMPARISON: None available. FINDINGS: SUPPORT DEVICES: None. HEART / MEDIASTINUM: No significant abnormality. LUNGS / PLEURA: No significant pulmonary or pleural abnormality. No pneumothorax. ADDITIONAL FINDINGS: 8 mm nodule suggested overlying the thoracic spine on lateral view. IMPRESSION: 1. Questionable nodule measuring 8 mm seen projecting overlying the thoracic spinal lateral views. A follow-up chest x-ray or CT recommended. Signer Name: Harsh Nicole MD Signed: 02/16/2021 10:43 AM Workstation Name: [email or web address] Transcribed By: CW Dictated By: JOB NICOLE MD Electronically Authenticated By: JOB NICOLE MD Signed Date/Time: 02/16/211042 DD/ 42 TD/TT: Print Cancel [facility] [address] [place] [id number] Cat Scan Report Signed Patient: RAMON RUTHERFORD MR#: [id number] : 1960 Acct:[id number] Age/Sex: 60 / F ADM Date: 02/16/21 Loc: ED Attending Dr: Ordering Physician: KING SMITH MD Date of Service: 02/16/21 Procedure(s): CT angio chest Accession Number(s): [id number] cc: KING SMITH MD CTA CHEST WITH IV CONTRAST INDICATION: Acute onset chest pain with dyspnea. TECHNIQUE: Axial CT images were obtained through the chest after injection of 100 mL IV contrast. 3 plane MIP reconstructions were produced. All CT scans at this location are performed using CT dose reduction for ALARA by means of automated exposure control. COMPARISON: None available. FINDINGS: PULMONARY ARTERIES: No pulmonary emboli. AORTA AND ARTERIES: No acute abnormality. ME DIASTINUM: No mass, lymphadenopathy or other significant abnormality. The heart is normal in size without a pericardial effusion. The trachea and main bronchi are patent and normal in caliber. LUNGS: No suspicious consolidation, nodule or mass. No pneumothorax or pleural effusion. Focal calcified granuloma within the medial aspect of the left lower lobe. ADDITIONAL FINDINGS: None. UPPER ABDOMEN: No acute findings. BONES: No significant osseous abnormality. IMPRESSION: 1. No CT evidence for pulmonary embolism. 2. No acute findings. Signer Name: Santino Schmitz MD Signed: 02/16/2021 2:52 PM Workstation Name: [id number] Transcribed By: BC Dictated By: Santino Schmitz MD Electronically Authenticated By: Santino Schmitz MD Signed Date/Time: 02/16/211451 DD/ 50 TD/TT: Print Cancel - Differential Diagnosis Pleurisy, pneumothorax, PE, GERD, anxiety Critical care attestation.: If time is entered above; I have spent that time in minutes in the direct care of this critically ill patient, excluding procedure time. ED Disposition Clinical Impression: Pleurisy Disposition: DC-01 TO HOME OR SELFCARE Is pt being admited?: No Does the pt Need Aspirin: No Condition: Stable Instructions: Pleurisy, [id number]-Wjms Additional Instructions: Return to the emergency department should you develop worsening symptoms, inability to tolerate food or liquids, high fever or any other concerns Prescriptions: Ibuprofen [Motrin 800 MG tab] 800 mg PO Q8HR PRN #20 tablet PRN Reason: Pain, Moderate (4-6) traMADoL [Ultram] 50 mg PO Q6HR PRN #10 tablet PRN Reason: Pain Referrals: PRIMARY CARE, [Primary Care Provider] - 3-5 Days NIRAV WATSON MD [Staff Physician] - 3-5 Days (Dr. Watson is a home insurance agent. Please follow-up with him for further evaluation) Time of Disposition: 15:07
--- NOTE | 2021-02-16 14:57 | Cat Scan Report ---
CTA CHEST WITH IV CONTRAST INDICATION: Acute onset chest pain with dyspnea. TECHNIQUE: Axial CT images were obtained through the chest after injection of 100 mL IV contrast. 3 plane MIP re constructions were produced. All CT scans at this location are performed using CT dose reduction for ALARA by means of automated exposure control. COMPARISON: None available. FINDINGS: PULMONARY ARTERIES: No pulmonary emboli. AORTA AND ARTERIES: No acute abnormality. MEDIASTINUM: No mass, lymphadenopathy or other significant abnormality. The heart is normal in size w ithout a pericardial effusion. The trachea and main bronchi are patent and normal in caliber. LUNGS: No suspicious consolidation, nodule or mass. No pneumothorax or pleural effusion. Focal calci fied granuloma within the medial aspect of the left lower lobe. ADDITIONAL FINDINGS: None. UPPER ABDOMEN: No acute findings. BONES: No significant osseous abnormality. IMPRESSION: 1. No CT evidence for pulmonary embolism. 2. No acute findings. Signer Name: Santino Schmitz MD Signed: 02/16/2021 2:52 PM Workstation Name: [id number]
--- NOTE | 2021-02-17 13:54 | Electrocardiograph Report ---
[facility] Test Date: 2021-02-16 Test Time: 11:53:44 Pat Name: RAMON RUTHERFORD Department: Room: Gender: F Captain Waiter/Waitress: : 1960 Requested By: TERRIE CALDERÓN Order Number: [id number] Reading MD: Tee Dueñas Measurements Intervals Cooter Rate: 57 P: 75 AK: 168 QRS: 83 QRSD: 94 T: 66 QT: 455 QTc: 442 Interpretive Statements Sinus bradycardia Probable left atrial enlargement No previous ECG available for comparison Electronically Signed On 02-17-2021 13:53:52 EDT by Tee Dueñas
== END 2021-02-16 15:27 | disposition home or self-care (01) ==
LOC: ED 09:53
DX: R09.1 Pleurisy (principal); K21.9 Gastro-esophageal reflux disease without esophagitis; Z90.49 Acquired absence of other specified parts of digestive tract; F17.200 Nicotine dependence, unspecified, uncomplicated; Z79.899 Other long term (current) drug therapy; Z88.2 Allergy status to sulfonamides; Z88.8 Allergy status to other drugs, medicaments and biological substances
CPT/HCPCS: 36415; 71046; 71275; 80053; 83735; 84484; 85025; 85610; 85730; 93005; 99284; Q9967

== ENCOUNTER 2021-03-02 14:05 | Outpatient (CLI) | payer BC ==
[2021-03-02 14:34] LABS: Basophils % (Auto) 0.4 % (0.0-1.8); Eosinophils # (Auto) 0.1 K/mm3 (0.0-0.4); Eosinophils % (Auto) 1.6 % (0.0-4.3); Hematocrit 38.8 % (30.3-42.9); Hemoglobin 13.8 gm/dl (10.1-14.3); Lymphocytes # (Auto) 1.4 K/mm3 (1.2-5.4); Mean Corpuscular HGB Conc 36 % (30-34); Mean Corpuscular Volume 94 fl (79-97); Monocytes # (Auto) 0.5 K/mm3 (0.0-0.8); Monocytes % (Auto) 8.2 % (0.0-7.3); Platelet Count 275 K/mm3 (140-440); Red Blood Count 4.12 M/mm3 (3.65-5.03); Red Cell Distribution Width 12.6 % (13.2-15.2)
[2021-03-02 14:50] LABS: Alanine Aminotransferase 13 units/L (7-56); Albumin 4.7 g/dL (3.9-5); Blood Urea Nitrogen 18 mg/dL (7-17); Calcium 9.3 mg/dL (8.4-10.2); Hemolysis Index 5
[2021-03-02 15:01] LABS: BUN/Creatinine Ratio 30
[2021-03-02 15:26] LABS: Free T4 (Free Thyroxine) 1.55 ng/dL (0.76-1.46)
== END 2021-03-02 14:06 | disposition home or self-care (01) ==
LOC: LAB 14:05
PROVIDERS: ATTEND Family Medicine
DX: E03.9 Hypothyroidism, unspecified (principal)
CPT/HCPCS: 36415; 80053; 84436; 84439; 84443; 84479; 85025

== ENCOUNTER 2021-07-05 12:38 | Outpatient (CLI) | payer BC ==
--- NOTE | 2021-07-05 14:09 | Cat Scan Report ---
CT ABDOMEN AND PELVIS WITHOUT IV CONTRAST INDICATION: HEMATURIA,GROSS. COMPARISON: CT 02/06/2019. TECHNIQUE: All CT scans at this facility use dose modulation, automated exposure control, iterative reconstructi on or weight based dosing, when appropriate, to reduce radiation dose to as low as reasonably achieva ble. FINDINGS: Lung Bases: No significant abnormality. Skeletal System: No acute abnormality. ABDOMEN: Liver: No significant abnormality. Gallbladder: Removed. Bile Ducts: No significant abnormality. Pancreas: No significant abnormality. Spleen: No significant abnormality. Adrenals: No significant abnormality. Right Kidney: No significant abnormality. Left Kidney: No significant abnormality. Upper GI tract: No significant abnormality. Lymph Nodes: No significant adenopathy. Aorta: No significant abnormality. Additional Findings: No significant abnormality. PELVIS: Colon: No acute abnormality. Urinary Bladder and Distal Ureters: No significant abnormality. Appendix: No significant abnormality. Lymph Nodes: No significant adenopathy. Additional Findings: None. IMPRESSION: 1. Within the limitations of non contrast technique, no acute process in the abdomen or pelvis. 2. Incidental findings, as above. Signer Name: Sean Gutierrez MD Signed: 07/05/2021 2:04 PM Workstation Name: [id number]
== END 2021-07-05 12:39 | disposition home or self-care (01) ==
LOC: CT 12:38
PROVIDERS: ATTEND Urology
DX: R31.9 Hematuria, unspecified (principal)
CPT/HCPCS: 74176

== ENCOUNTER 2021-10-27 14:51 | Outpatient (CLI) | payer BC ==
[2021-10-27 15:38] LABS: Basophils % (Auto) 0.5 % (0.0-1.8); Eosinophils # (Auto) 0.1 K/mm3 (0.0-0.4); Eosinophils % (Auto) 1.2 % (0.0-4.3); Hematocrit 39.9 % (30.3-42.9); Hemoglobin 13.2 gm/dl (10.1-14.3); Lymphocytes # (Auto) 1.4 K/mm3 (1.2-5.4); Lymphocytes % (Auto) 22.5 % (13.4-35.0); Mean Corpuscular HGB Conc 33 % (30-34); Mean Corpuscular Volume 97 fl (79-97); Monocytes # (Auto) 0.6 K/mm3 (0.0-0.8); Monocytes % (Auto) 8.9 % (0.0-7.3); Platelet Count 230 K/mm3 (140-440); Red Blood Count 4.13 M/mm3 (3.65-5.03); Red Cell Distribution Width 13.1 % (13.2-15.2)
[2021-10-27 16:06] LABS: Free T4 (Free Thyroxine) 0.93 ng/dL (0.76-1.46)
[2021-10-27 16:13] LABS: Alanine Aminotransferase 31 units/L (7-56); Albumin 4.7 g/dL (3.9-5); Blood Urea Nitrogen 18 mg/dL (7-17); Calcium 9.7 mg/dL (8.4-10.2); Hemolysis Index 3
[2021-10-27 16:19] LABS: BUN/Creatinine Ratio 45
== END 2021-10-27 14:52 | disposition home or self-care (01) ==
LOC: LAB 14:51
DX: E07.9 Disorder of thyroid, unspecified (principal)
CPT/HCPCS: 36415; 80053; 82607; 82747; 83036; 84439; 84443; 84481; 85025

== ENCOUNTER 2022-04-25 06:37 | Day surgery (SDC) | payer BC ==
[~2022-04-25 06:37] MED LIST changes: +LACTATED RINGERS 1,000 ML IV SCH; +MIDAZOLAM 2 MG/2 ML INJ IV NR; -SODIUM CHLORIDE 0.9% 1000 ML 1,000 ML IV SCH
[2022-04-25] MEDS ORDERED: HYDROmorphone 0.5 MG/0.5 ML INJ IV PRN (07:38)
[2022-04-25] MEDS ORDERED: ONDANSETRON 4 MG/2 ML INJ IV PRN (07:38)
[2022-04-25] MEDS ORDERED: HYDROcodone/ACETAMINOPHEN 5-325 MG TAB PO PRN (07:38)
--- NOTE | 2022-04-25 07:38 | Anesthesia Consultation ---
Anesthesia Consult and Med Hx Date of service: 04/25/22 - Airway Anesthetic Teeth Evaluation: Good ROM Head & Neck: Adequate Mental/Hyoid Distance: Adequate Mallampati Class: Class I Intubation Access Assessment: Good - Pre-Operative Health Status ASA Pre-Surgery Classification: ASA2 Proposed Anesthetic Plan: General - Pulmonary Hx Smoking: Yes (1PPD) Hx Respiratory Symptoms: No Hx Sleep Apnea: No (EFE PRE SCREEN LOW RISK) - Cardiovascular System Hx Hypertension: No - Central Nervous System CVA: No - Endocrine Hx Liver Disease: Yes (hx HCV s/p treatment) Hx Hypothyroidism: Yes - Additional Comments Anesthesia Medical History Comments: No hx anesthetic complications.
--- NOTE | 2022-04-25 07:38 | Anesthesia Day of Surgery ---
Anesthesia Day of Surgery - Day of Surgery Patient Examined: Yes Patient H&P Reviewed: Yes Patient is NPO: Yes
[2022-04-25] MEDS ORDERED: ceFAZolin/Water 2 GM/20 ML 2 GM/20 ML SYRINGE IV ONE (07:54)
[2022-04-25] MEDS ORDERED: propofoL 200 MG/20 ML VIAL IV ONE (08:15)
--- NOTE | 2022-04-25 08:59 | Short Stay Summary ---
Short Stay Documentation Date of service: 04/25/22 - History H&P: obtained from office - Allergies and Medications Current Medications: Allergies Sulfa (Sulfonamide Antibiotics) Allergy (Verified 08/10/16 11:13) Rash ciprofloxacin [From Cipro] Adverse Reaction (Verified 04/17/22 14:57) lips bleed [place] ciprofloxacin HCl [From Cipro] Adverse Reaction (Verified 04/17/22 14:57) lips bleed [place] fluconazole [From Diflucan] Adverse Reaction (Verified 08/10/16 11:13) lips bleed Home Medications Medication Instructions Recorded Confirmed Last Taken Type Levothyroxine [Synthroid] 75 mcg PO QAM 10/18/16 04/17/22 08/17/19 History Lactobacillus Acidophilus 1 each PO DAILY 04/17/22 04/17/22 Unknown History [Acidophilus Probiotic] Multivit-Min/FA/Lycopen/Lutein 1 each PO DAILY 04/17/22 04/17/22 Unknown History [Centrum Silver Tablet] Progesterone, Micronized 100 mg PO DAILY 04/17/22 04/17/22 Unknown History [Progesterone] estradioL [Estradiol] 1 mg PO DAILY 04/17/22 04/17/22 Unknown History Active Medications Hydrocodone Bitart/Acetaminophen (Hydrocodone/Acetaminophen 5-325 Mg Tab) 2 each PO ONCE PRN PRN Reason: Pain, Moderate (4-6) Stop: 04/25/22 20:00 Hydromorphone HCl (Hydromorphone 0.5 Mg/0.5 Ml Inj) 0.5 mg IV Q10MIN PRN PRN Reason: Pain , Severe (7-10) Stop: 04/25/22 20:00 Lactated Ringer's (Lactated Ringers) 1,000 mls @ 100 mls/hr IV DIRECT MARTHA Stop: 04/25/22 23:59 Midazolam HCl (Midazolam 2 Mg/2 Ml Inj) 2 mg IV PREOP NR Stop: 04/25/22 23:59 Ondansetron HCl (Ondansetron 4 Mg/2 Ml Inj) 4 mg IV ONCE PRN PRN Reason: Nausea And Vomiting Stop: 04/25/22 20:00 - Brief post op/procedure progress note Date of procedure: 04/25/22 Pre-op diagnosis: recurrent UTI Post-op diagnosis: other (BLADDER LESION) Procedure: CYSTO, RPG, HYDRODISTENTION (700CC), URETHRAL DILATION, BLADDER BX Anesthesia: RADHAA Surgeon: BERNARDA FERGUSON Estimated blood loss: minimal Pathology: list (BLADDER LESION) Specimen disposition: to lab Condition: stable - Hospital course Hospital course: [facility] & [facility] ON CHART - Disposition Condition at discharge: Stable Disposition: 01 HOME / SELF CARE / HOMELESS Short Stay Discharge Plan Follow up with: PRIMARY CARE, [Primary Care Provider] - 7 Days
--- NOTE | 2022-04-25 09:16 | Fluoroscopy Report ---
FLUOROSCOPY RETROGRADE UROGRAPHY INDICATION: RECURRENT UTI. COMPARISON: None. IMPRESSION: 0.1 minutes of fluoroscopy time was provided by radiology during retrograde urography. 4 fluoroscopic images are presented. The renal collecting systems appear unremarkable bilaterally wit h no evidence for filling defect or abnormal dilatation. Please correlate with the procedural report as needed. Signer Name: Juan Carlos Cyr Jr, MD Signed: 04/25/2022 9:12 AM Workstation Name: [id number]
--- NOTE | 2022-04-25 09:20 | Operative Report ---
DATE OF SURGERY: 04/25/2022 PREOPERATIVE DIAGNOSES: Recurrent urinary tract infection, perineal pain. POSTOPERATIVE DIAGNOSES: Recurrent urinary tract infection, perineal pain, bladder lesion, and urethral stenosis. PROCEDURES: Cystoscopy, urethral dilatation, bilateral retrograde pyelograms, hydrodistention, biopsy of bladder lesion. SURGEON: Demario London MD ANESTHESIA: General. ESTIMATED BLOOD LOSS: Minimal. FLUIDS: Crystalloid. COMPLICATIONS: No complications. INDICATIONS: This 61-year-old female seen in the office with a history of recurrent UTIs. Her was present during the interview. She underwent CT of abdomen and pelvis, which was unremarkable. Due to her persistent pelvic pain and urinary symptoms, she presents now for surgical intervention. She is a smoker. DESCRIPTION OF PROCEDURE: The patient was taken to the operative suite, placed in a supine position. After adequate general anesthesia, placed in the dorsal lithotomy position, prepped and draped in a sterile fashion. Pancystourethroscopy was performed with a 22-[place] Storz cystoscope with some mild stenosis of the urethra. Bladder, no tumors or stones were noted. She did have some mild trabeculation. Again, no tumors or stones noted. Bilateral retrograde pyelograms were obtained with an 8-V[place]an Hewett catheter and 8 mL of contrast. No filling defects or obstruction. Urethral dilatation to 32-V[place]an was performed without difficulty. Hydrodistention was performed. A total bladder capacity of 700 mL. Reevaluation of the bladder, there is a small posterior lesion that was biopsied and sent for routine pathologic evaluation as well as a urine culture was obtained at the beginning of the procedure, bladder was drained. Pelvic examination under anesthesia, no obvious masses. She was extubated and taken to recovery room. She will go home on [employer] and [employer]. TID: [id number] RECEIPT: [id number] [facility]
[2022-04-25 11:28] VITALS: BP 131/84
--- NOTE | 2022-04-25 13:45 | Post Anesthesia Evaluation ---
- Post Anesthesia Evaluation Patient Participated: Yes Airway Patent: Yes Stable Respiratory Function: Yes Nausea/Vomiting: No Temp > 96.8F: Yes Pain Manageable: Yes Adequeate Hydration: Yes Anesthesia Complications: No
== END 2022-04-25 06:38 | disposition home or self-care (01) ==
LOC: OR 06:37
PROVIDERS: ATTEND Urology
DX: N39.0 Urinary tract infection, site not specified (principal); R10.2 Pelvic and perineal pain; A41.9 Sepsis, unspecified organism; N35.82 Other urethral stricture, female; N32.89 Other specified disorders of bladder; K21.9 Gastro-esophageal reflux disease without esophagitis; E03.9 Hypothyroidism, unspecified; F17.210 Nicotine dependence, cigarettes, uncomplicated; Z79.899 Other long term (current) drug therapy; Z88.2 Allergy status to sulfonamides; Z88.8 Allergy status to other drugs, medicaments and biological substances; Z86.010 Personal history of colon polyps; Z98.41 Cataract extraction status, right eye; Z98.42 Cataract extraction status, left eye; Z90.49 Acquired absence of other specified parts of digestive tract; Z98.890 Other specified postprocedural states
CPT/HCPCS: 52281; 74420; 87086; 88305; C1758; J0690; J2250; J2704; J7120; Q9967